=== PATIENT | male | born 1980 | race Two or more races ===

== ENCOUNTER → 2016-07-06 | Outpatient (CLI) | payer OTHER ==
--- NOTE | 2016-07-06 18:15 | DX ---
Bilateral Feet - Six Views Indication: Plantar fasciitis versus heel spur. Pain. Technique: Bilateral AP, oblique, and lateral views. Comparison: None. Findings: The normally mineralized bones are anatomically aligned. Small bilateral symmetric planta r spurs are present. No erosions or soft tissue calcification. Joint spaces are well preserved. No hallux valgus deformity, bone lesion, or periosteal reaction. Impression: Small bilateral plantar spurs. No erosive disease or arthropathy.
== END ==
LOC: BMCIMAGING 16:52
PROVIDERS: ATTEND Internal Medicine
DX: M79.671 Pain in right foot (principal); M79.672 Pain in left foot; M77.32 Calcaneal spur, left foot; M77.31 Calcaneal spur, right foot